=== PATIENT | female | born 1980 | race Caucasian/White ===

== ENCOUNTER 2018-08-30 11:28 | Emergency (ER) | payer OTHER ==
[2018-08-30 11:36] VITALS: BP 121/79; PULSE 79; TEMP 98.9; BMI 34.4
--- NOTE | 2018-08-30 11:54 | PDOC ---
History of Present Illness - General Chief Complaint: Rash Stated Complaint: RASH Time Seen by Provider: 08/30/18 11:42 Exam Limitations: No Limitations (pruritic rash X 2.5wks) - History of Present Illness Associated Symptoms: reports: rash. denies: headache, sore throat Past History - Travel Traveled outside of the country in the last 30 days: No Close contact w/someone who was outside of country & ill: No - Past Medical History Allergies/Adverse Reactions: Allergies Allergy/AdvReac Type Severity Reaction Status Date / Time No Known Allergies Allergy Verified 08/30/18 11:36 Home Medications: Ambulatory Orders Diphenhydramine HCl 25 mg PO ACDIN 7 Days #21 capsule 08/30/18 NK [No Known Home Medication] 08/30/18 Permethrin 5% Topical Cream [Elimite -] 1 applic TP ONCE 1 Days #60 tube Triamcinolone 0.1% Ointment [Aristocort 0.1% Ointment -] 1 applic TP BID 7 Days #60 gr 08/30/18 Asthma: No COPD: No Diabetes: No HTN: No Hypercholesterolemia: No - Reproductive History (#): 5 Para: 1 Cervical CA: No Dysfunctional Uterine Bleeding: No Ectopic : No Endometrial CA: No Polycystic Ovaries: No Therapeutic (s) & number: Yes (1) Tubal Ligation: No Spontaneous : 3 - Suicide/Smoking/Psychosocial Hx Smoking Status: Yes Smoking History: Never smoked Number of Cigarettes Smoked Daily: 5 Review of Systems - Review of Systems Is the patient limited Cymro proficient: No Constitutional: No: Chills, Fever Integumentary: Yes: Pruritus, Rash *Physical Exam - Vital Signs Last Vital Signs Temp Pulse Resp BP Pulse Ox 98.9 F 79 18 121/79 99 08/30/18 11:33 08/30/18 11:33 08/30/18 11:33 08/30/18 11:33 08/30/18 11:33 - Physical Exam General Appearance: Yes: Nourished Respiratory/Chest: positive: Lungs Clear, Normal Breath Sounds Cardiovascular: positive: Regular Rhythm, Regular Rate, S1, S2 Integumentary: positive: Rash (multiple erytheamous raised skin around neck, chest, groin) 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 Rash for the past 2-1/2 weeks. 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 Examination consistent with raised erythematous area and posterior neck and anterior chest in her lower abdomen and groin there is no warmth. I will treat patient for suspicious scabies with permethrin and Benadryl patient encouraged to follow dermatology change linens and treat clost contacts. *DC/Admit/Observation/Transfer Diagnosis at time of Disposition: Scabies - Discharge Dispostion Disposition: HOME Condition at time of disposition: Good Decision to Admit order: No - Prescriptions Prescriptions: Diphenhydramine HCl 25 mg PO ACDIN 7 Days #21 capsule Permethrin 5% Topical Cream [Elimite -] 1 applic TP ONCE 1 Days #60 tube Triamcinolone 0.1% Ointment [Aristocort 0.1% Ointment -] 1 applic TP BID 7 Days #60 gr - Referrals Referrals: Jacinto Sepulveda MD [Primary Care Provider] - - Patient Instructions Printed Discharge Instructions: DI for Scabies Additional Instructions: Please keep dermatology appointment as scheduled next week Change rocha sheets and linens - Post Discharge Activity
== END 2018-08-30 11:59 | disposition home or self-care (01) ==
LOC: JERFT 11:28
DX: B86 Scabies (principal)
CPT/HCPCS: 99281-25

== ENCOUNTER 2019-03-29 09:24 | Emergency (ER) | payer OTHER | END 2019-03-29 10:08 | disposition home or self-care (01) | LOC: FER 09:24 ==

== ENCOUNTER 2022-12-22 19:38 | Emergency (ER) | payer OTHER ==
[2022-12-22 19:49] VITALS: BP 142/84; PULSE 87; RESP 16; TEMP 99.1; BMI 34.5
[2022-12-22] MEDS ORDERED: NEOMYCIN/POLYMYXN/HC OTIC SUSPENSION 10 ML BOTTLE ONE (20:19)
[2022-12-22] MEDS ORDERED: NEOMYCIN/POLYMYXN/HC OTIC SUSPENSION 10 ML BOTTLE AU ONE (20:22)
== END 2022-12-22 20:27 | disposition home or self-care (01) ==
LOC: FER 19:38
DX: H92.03 Otalgia, bilateral (principal); H60.93 Unspecified otitis externa, bilateral
CPT/HCPCS: 99282-25